=== PATIENT | female | born 2000 | race Caucasian/White ===

== ENCOUNTER 2022-04-25 05:32 | Emergency (ER) | payer BC ==
--- OUTSIDE RECORDS SUMMARY | 2022-04-25 05:37 | XMS REPORT | Continuity of Care Document ---
:[address] [facility] t Address [address] [place] [address] Care Team Providers Name Role Phone PCP, PATIENT DOES NOT HAVE A Primary Care Physician UnavailJOSHUA Triplett Attending Clinician Unavailable Joshua Moore Attending Clinician JUDITH JAMES Attending Clinician Unavailable Provider, [facility] Attending Clinician Unavailable Judith Ye Attending Clinician CARLITOS ROBLERO Attending Clinician Unavailable Alvarado Barrera Attending Clinician Carlitos Lambert Attending Clinician Only, Pcp Test Attending Clinician Unavailable Radha Reilly MD Attending Clinician RADHA REILLY Attending Clinician Unavailable Pob[facility], [facility] Attending Clinician Unavailable Trina Arvizu MD Attending Clinician TRINA ARVIZU Attending Clinician Unavailable JOSHUA SUBRAMANIAN Admitting Clinician Unavailable Payers Payer Name Policy Type Policy Number Effective Date Expiration Date S ource ENTRUST [id number] 2020 00:00:00 [employer] [id number] 2019 PREFERRED GENERIC 00:00:00 Problems Condition Condition Condition Status Onset Resolution Last Treating Co mments Source Name Details Category Date Date Treatment Clinician Date No known No known Disease Unive rs active active ity of problems problems [facility] Allergies, Adverse Reactions, Alerts Allergy Allergy Status Severity Reaction(s) Onset Inactive Treating Comm ents Source Name Type Date Date Clinician Penicill Propensi Active Rash Univer s ins ty to 6-10 ity of adverse 00:00: [place] reaction 00 Medical s Branch PENICILL Drug Active Rash 0 Univers INS Class 6-10 ity of 00:00: [place] 00 Medical Branch NO KNOWN Drug Active Univers ALLERGIE Class ity of S [facility] Social History Social Habit Start Date Stop Date Quantity Comments Source Sex Assigned At [facility] Medical Branch Exposure to Not sure [facility] SARS-CoV-2 (event) Medica l Branch Tobacco use and 2020-05-20 2020-05-20 Never used [facility] exposure 00:00:00 00:00:00 Medical Branch Smoking Status Start Date Stop Date Source Never smoker [facility] Medications Ordered Filled Start Stop Current Ordering Indication Dosage Frequency Signature Comments Components Source Medication Medication Date Date Medication? Clinician (SIG) Name Name albuterol 2019-06 Yes [id number] 2{puff} Inhale 2 Univers 90 2-19 Puffs ity of mcg/actuati 00:00: every 4 [place] as on inhaler 00 (four) Medical hours as Branch needed for Wheezing or Shortness of Breath. benzonatate 2019-06 Yes [id number] 100mg Take 1 Univers 100 mg 2-19 capsule by ity of capsule 00:00: mouth 3 [place] 00 (three) Medical times Branch daily as needed for Cough. No known No [facility] No known No [facility] No known No [facility] No known No [facility] No known No [facility] No known No Univers medications [facility] [place] Vital Signs Vital Name Observation Time Observation Value Comments Source Systolic blood 2020-05-21 03:19:42 133 mm[Hg] Univer sity of [facility] Diastolic blood 2020-05-21 03:19:42 78 mm[Hg] Unive rsity of [facility] Heart rate 2020-05-21 03:19:42 93 /min Universi ty of [facility] Respiratory rate 2020-05-21 03:19:42 20 /min Univ ersity [facility] Oxygen saturation in 2020-05-21 03:19:42 99 /min [facility] Arterial blood by [facility] Pulse oximetry Branch Body temperature 2020-05-21 01:18:00 37.78 Brianne Univ ersity [facility] [place] [facility] Body weight 2020-05-21 01:18:00 97.523 kg [facility] [place] [facility] BMI 2020-05-21 01:18:00 33.67 kg/m2 [facility] [place] [facility] Systolic blood 2020-05-21 00:05:00 135 mm[Hg] Univer sity [facility] [place] [facility] Diastolic blood 2020-05-21 00:05:00 76 mm[Hg] Unive rsity [facility] [place] [facility] Heart rate 2020-05-21 00:05:00 75 /min [facility] [place] [facility] Body temperature 2020-05-21 00:05:00 37.22 Brianne [facility] [place] [facility] Respiratory rate 2020-05-21 00:05:00 17 /min Univ [facility] [place] [facility] Body height 2020-05-21 00:05:00 170.2 cm [facility] [place] [facility] Body weight 2020-05-21 00:05:00 95.255 kg [facility] [place] [facility] BMI 2020-05-21 00:05:00 32.89 kg/m2 [facility] [place] [facility] Oxygen saturation in 2020-05-21 00:05:00 98 /min University of Arterial blood by [facility] Pulse oximetry Branch Systolic blood 2020-05-18 19:43:00 134 mm[Hg] Univer sity [facility] [place] [facility] Diastolic blood 2020-05-18 19:43:00 79 mm[Hg] Unive rsity [facility] [place] [facility] Heart rate 2020-05-18 19:43:00 83 /min [facility] [place] [facility] Body temperature 2020-05-18 19:43:00 37.06 Brianne [facility] [place] [facility] Respiratory rate 2020-05-18 19:43:00 18 /min Univ [facility] [place] [facility] Body height 2020-05-18 19:43:00 170.2 cm [facility] [place] [facility] Body weight 2020-05-18 19:43:00 95.255 kg [facility] [place] [facility] BMI 2020-05-18 19:43:00 32.89 kg/m2 [facility] [place] [facility] Oxygen saturation in 2020-05-18 19:43:00 98 /min University of Arterial blood by [facility] Pulse oximetry Branch Diastolic blood 2019-11-10 19:20:00 78 mm[Hg] Unive rsity of pressure [facility] Heart rate 2019-11-10 19:20:00 101 /min [facility] Body temperature 2019-11-10 19:20:00 36.39 Brianne [facility] Respiratory rate 2019-11-10 19:20:00 18 /min [facility] [place] Body height 2019-11-10 19:20:00 170.2 cm [facility] Body weight 2019-11-10 19:20:00 95.255 kg [facility] BMI 2019-11-10 19:20:00 32.89 kg/m2 [facility] Oxygen saturation in 2019-11-10 19:20:00 99 /min [facility] Arterial blood by [facility] Pulse oximetry [place] Systolic blood 2019-11-10 19:20:00 116 mm[Hg] Univer sity of pressure [facility] Procedures Procedure Date / Time Performed Performing Clinician Joan e POCT TEST 2020-05-21 02:13:00 Joshua Subramanian [facility] URINALYSIS 2020-05-21 02:12:00 [facility] VW 2020-05-21 02:05:30 Tez [facility] NOTICE OF PRIVACY 2020-05-21 01:03:29 Doctor Unassigned, No Univ [facility] PRACTICES Name Medical [place] CONSENT/REFUSAL FOR 2020-05-21 01:03:15 [facility], [facility] Name Medical Branch TREATMENT POCT FLU A AND B 2020-05-21 00:15:00 Judith James [facility] (MOLECULAR) [facility] Branch POCT GRP A STREP 2020-05-18 19:47:00 Carlitos Roblero [facility] (MOLECULAR) [facility] Encounters Start End Encounter Admission Attending Care Care Encounter Source Date/Time Date/Time Type Type Clinicians Facility Department ID 2020-05-20 2020-05-20 Emergency X MICHAEL SUBRAMANIAN ERT [id number] Univers 19:20:00 21:24:00 JOSHUA [facility] [place] 2020-05-20 2020-05-20 Emergency MICHAEL Subramanian [id number] Univers 19:20:00 21:24:00 Joshua Ramirez [id number] i ty mark [id number] [phone] [address] 2020-05-20 2020-05-20 Outpatient R JACOB [facility] [id number] Univers 18:20:00 18:20:00 JUDITH [facility] [place] 2020-05-20 2020-05-20 Urgent Provider, [facility] [id number] Univers 17:47:41 18:07:41 Eulogio Jacob [facility] [id number] ity of [place] 4.2.7.2.686 [place] as Professio [phone] [address] Office [facility] 2020-05-18 2020-05-18 Outpatient R MANJULAERIC [facility] [id number] Univers 14:00:00 14:00:00 [facility] 2020-05-18 2020-05-18 Urgent Alvarado Ohara [facility] [id number] Univers 13:38:12 13:58:12 Eulogio Annika [facility] [id number] ity of [place] 4.2.7.2.686 [place] Professio [id number] [address] Office Building [facility] 2019-12-06 2019-12-06 Laboratory Only, Pcp Test [facility] 1.2.840. 114 [id number] Univers 15:39:50 15:54:50 Only Radha Reilly PRIMARY [id number] it[place] [id number] [address] 2019-12-06 2019-12-06 Outpatient R EMANUEL [facility] [id number] Univers 15:30:00 15:30:00 RADHA tripp [facility] 2019-11-27 2019-11-27 Laboratory Only, Pcp Test [facility] 1.2.840. 114 [id number] Univers 16:20:59 16:35:59 Only Radha Reilly PRIMARY [id number] [place] [id number] [address] 2019-11-27 2019-11-27 Outpatient R EMANUEL [facility] [id number] Univers 16:30:00 16:30:00 [facility] 2019-11-12 2019-11-12 Telephone Pob1, Acute [facility] 1.2.840.114 [id number] Univers 00:00:00 00:00:00 Health System [id number] ity of [place] 4.2.7.2.686 [place] as Professio [id number] Fl [address]nm n[address] Office Building [facility] 2019-11-10 2019-11-10 Urgent Pob1, Acute Care Clinic [facility] 1. [id number] Univers 14:06:54 14:26:54 Eulogio ArreguinanTrina [facility] [id number] ity of [place] 4.2.7.2.686 [place] Professio [id number] [facility] [address] [place] Office [facility] 2019-11-10 2019-11-10 Outpatient R BELEN [facility] [id number] Univers 13:40:00 13:40:00 [facility] Results Test Description Test Time Test Comments Results Result Comments Source Urinalysis 2020-05-21 02:38:00 Test Item Value Reference Range Interpretation Comme nts APPEARANCE (test code = Clear Clear 7086713126) COLOR (test code = 0886906820) Yellow Yellow PH (test code = 9678578191) 4.8-8.0 SP GRAVITY (test code = 1.003-1.030 8225672029) GLU U QUAL (test code = Negative Negative 6722028319) BLOOD (test code = 4399144610) Moderate Negative A KETONES (test code = 0651177357) Negative Negative PROTEIN (test code = 2887-8) Negative Negative UROBILIN (test code = 1.0 mg/dL See_Comment [Auto mated message] The 1271524000) system which ge nerated this result transmit seb reference range: 0-1.0 mg /dL. The reference range was not used to interpret th is result as normal/abnormal . BILIRUBIN (test code = Negative Negative 9592913777) NITRITE (test code = 0980108021) Negative Negative LEUK ERIC (test code = Negative Negative 2127609488) RBC/HPF (test code = 3920691268) See_Comment H [Automated message] The system which ge nerated this result transmit seb reference range: 0 - 3 HP F. The reference range was not used to interpret th is result as normal/abnormal . WBC/HPF (test code = 9778045243) See_Comment [Automated message] The system which ge nerated this result transmit seb reference range: 0 - 5 HP F. The reference range was not used to interpret th is result as normal/abnormal . BACTERIA (test code = Few Negative A 8951529189) SQ EPITH (test code = HPF 7986588475) Lab Interpretation (test code = Abnormal 82244-2) [facility] 1 [id number] 02:23:37Impression: No acute cardiopulmonary abnormality. Preliminary Report Dictated by Resident: Melchor Browne MD., have reviewed this study and agree with the abovereport.Exam: XR CHEST1 VW History: cough Comparison: None available Findings: The lungs are clear. No focal consolidationis present. No pleural effusionor pneumothorax is identified. The heart is normal in size. No acute o sseous abnormality. [facility], Radiant Results Inft User - 05/20/2020 8:24 PM CSTExam: XR CHEST 1 VWHistory: cough Comparison: None availableFindings:The lungs are clear. No focal consolidation is present. No pleural effusionor pneumothorax is identified. The heart is normal in size. No acute osseous abnorm ality.IMPRESSIONImpression:No acute cardiopulmonary abnormality.Preliminary Report Dictated by Resident: Melchor Shetty MD., have reviewed this study and agree with the abovereport.[facility] [id number] 02:13:00 Test Item Value Reference Range Interpretation Comments POCT PREG (test code = 1605) Negative On board controls acceptable with Presents C Line (test code = 3574) POCT PREG LOT # (test code = 3575) [id number] POCT PREG TEST DATE (test 08/30/2021 code = 3576) Lab Interpretation (test code = Normal 55255-5) [facility] FLU A AND B (MOLECULAR)2020-05-21 00:29:00 Test Item Value Reference Range Interpretation Comments POCT INFLUENZA A (test code = neg Negative - Negative 3840) POCT INFLUENZA B (test code = neg Negative - Negative 3841) Lab Interpretation (test code = Normal 22470-3) [facility] GRP A STREP (MOLECULAR)2020-05-18 19:59:00 Test Item Value Reference Range Interpretation Comments POCT GP A STREP (test negative Negative - code = 68998-7) Negative YONY (test code = YONY) accurate development and interpretation of all internal controls Lab Interpretation Normal (test code = 56273-9) [facility] [place]
[2022-04-25] MEDS ORDERED: ONDANSETRON 4 MG/2 ML VIAL ONE (06:03)
[2022-04-25] MEDS ORDERED: NA CHLORIDE 0.9% 1,000 ML ONE (06:03)
[2022-04-25 06:16] LABS: Urine Blood Negative (Negative); Urine Glucose Negative (Negative); Urine Protein Negative (Negative); Urine Specific Gravity >=1.030 (1.005-1.030); Urine pH 5.5 (5.0-7.0)
[2022-04-25 06:32] LABS: Absolute Lymphocytes (CBC) 2.9 K/uL (0.7-4.9); Hematocrit 41.3 % (36.0-45.0); Lymphocytes % 32.7 % (15.3-44.8); MPV 6.9 fL (7.6-11.3)
[2022-04-25 06:46] LABS: Bilirubin Total 0.8 mg/dL (0.2-1.0); Potassium 3.9 mmol/L (3.5-5.1); Protein, Total 8.3 g/dL (6.4-8.2)
[2022-04-25 06:48] LABS: Urine Bacteria <20 /HPF (<20); Urine Mucus Slight /HPF (None Seen); Urine RBC <5 /HPF (None Seen)
[2022-04-25 07:31] LABS: SARS-COV-2 RT PCR NEGATIVE (NEGATIVE)
--- NOTE | 2022-04-25 07:39 | RAD REPORT ---
EXAM DESCRIPTION: CT - Abdomen Pelvis W Contrast - 04/25/2022 7:16 am CLINICAL HISTORY: Abdominal pain COMPARISON: none. TECHNIQUE: Computed axial tomography of the abdomen pelvis was obtained. 100 cc Isovue-300 was admin istered intravenously. Oral contrast was not requested which limits evaluation of bowel and appendix All CT scans are performed using dose optimization technique as appropriate and may include automated exposure control or mA/KV adjustment according to patient size. FINDINGS: The liver, spleen, pancreas, adrenal and kidneys appear unremarkable. There is no evidence of diverticulitis. Normal appendix No adnexal mass Small umbilical hernia. Several small right lower quadrant mesenteric lymph nodes IMPRESSION: Several small right lower quadrant mesenteric lymph nodes likely reactive in nature
--- NOTE | 2022-04-25 07:58 | EDPHYS ---
Physician Documentation [facility] Name: Linda Santiago Age: 21 yrs Sex: Female : 2000 Arrival Date: 04/25/2022 Time: 05:41 Bed 6 Private MD: ED Physician Timoteo Chowdhury HPI: 04/25 05:58 This 21 yrs old Female presents to ER via Ambulatory with complaints of Abdominal Pain, rn Nausea/Vomiting/Diarrhea. 05:58 The patient presents to the emergency department with nausea, vomiting, diarrhea, rn abdominal pain. Onset: The symptoms/episode began/occurred yesterday. Possible causes: unknown. The symptoms are aggravated by nothing. The symptoms are alleviated by nothing. Associated signs and symptoms: Pertinent positives: abdominal pain, diarrhea, nausea, vomiting, Pertinent negatives: fever, GI bleeding. Severity of symptoms: At their worst the symptoms were moderate in the emergency department the symptoms are unchanged. The patient has not experienced similar symptoms in the past. The patient has not recently seen a physician. Historical: - Allergies: 05:51 PENICILLINS; aa9 05:51 Morphine; aa9 - Home Meds: 05:51 None [Active]; aa9 - PMHx: 05:51 None; aa9 - PSHx: 05:51 None; aa9 - Immunization history:: Client reports having NOT received the Covid vaccine. - Social history:: Smoking status: Patient denies any tobacco usage or history of. - Family history:: not pertinent. - Hospitalizations: : No recent hospitalization is reported. ROS: 05:58 Constitutional: Negative for fever, chills, and weight loss, Eyes: Negative for injury, rn pain, redness, and discharge, Neck: Negative for injury, pain, and swelling, Cardiovascular: Negative for chest pain, palpitations, and edema, Respiratory: Negative for shortness of breath, cough, wheezing, and pleuritic chest pain, Abdomen/GI: + abd pain/nausea/vomiting/diarrhea Back: Negative for injury and pain, : Negative for injury, bleeding, discharge, and swelling, MS/Extremity: Negative for injury and deformity, Skin: Negative for injury, rash, and discoloration, Neuro: Negative for headache, numbness, tingling, and seizure. Exam: 05:58 Constitutional: This is a well developed, well nourished patient who is awake, alert, rn and in no acute distress. Head/Face: Normocephalic, atraumatic. ENT: dry MM Cardiovascular: Regular rate and rhythm. No pulse deficits. Respiratory: No increased work of breathing, no retractions or nasal flaring. Abdomen/GI: soft, + tender in all 4 quadrants, neg conn, no peritoneal signs, no distension or masses Skin: Warm, dry MS/ Extremity: Pulses equal, no cyanosis. Neuro: Awake and alert, GCS 15 Vital Signs: 05:49 Weight 108.86 kg (R); Height 5 ft. 7 in. (170.18 cm) (R); aa9 05:52 BP 128 / 99; Pulse 87; Resp 19 S; Pulse Ox 100% on R/A; aa9 05:57 Temp 98.2(O); aa9 06:27 BP 123 / 68; Pulse 82; Resp 18 S; Pulse Ox 99% on R/A; aa9 07:55 BP 122 / 86; Pulse 77; Resp 16; Pulse Ox 100% ; jl7 05:49 Body Mass Index 37.59 (108.86 kg, 170.18 cm) aa9 MDM: 05:42 Patient medically screened. rn 07:00 Transition of care: Care assumed from Uday Slaughter MD. ms3 08:05 Data reviewed: vital signs, nurses notes, lab test result(s), radiologic studies, and ms3 as a result, I will discharge patient. Counseling: I had a detailed discussion with the patient and/or guardian regarding: the historical points, exam findings, and any diagnostic results supporting the discharge/admit diagnosis, lab results, radiology results, the need for outpatient follow up, to return to the emergency department if symptoms worsen or persist or if there are any questions or concerns that arise at home. Special discussion: I discussed with the patient/guardian in detail that at this point there is no indication for admission to the hospital. It is understood, however, that if the symptoms persist or worsen the patient needs to return immediately for re-evaluation. ED course: Discussed labs, CT scan with patient. Patient to follow-up with Dr. Salinas in 2 to 3 days. Patient returns and agrees with plan. Patient given work note to return to work on April 28. Patient understands and agrees with plan. All questions were answered. Return precautions discussed include worsening symptoms, or any other concerns. On reevaluation patient is improved, alert and oriented x4, in no apparent distress, nontoxic appearing.. 04/25 05:58 Order name: CBC with Diff; Complete Time: 06:43 rn 04/25 05:58 Order name: CMP; Complete Time: 06:51 rn 04/25 05:58 Order name: Lipase; Complete Time: 06:51 rn 04/25 05:58 Order name: Urine Microscopic Only; Complete Time: 06:51 rn 04/25 05:58 Order name: COVID-19/FLU A+B; Complete Time: 07:43 rn 04/25 06:16 Order name: Urine Dipstick-Ancillary; Complete Time: 06:43 EDMS 04/25 05:58 Order name: CT Abd/Pelvis - IV Contrast Only; Complete Time: 07:43 rn 04/25 05:58 Order name: IV Saline Lock; Complete Time: 06:19 rn 04/25 05:58 Order name: Labs collected and sent; Complete Time: 06:19 rn 04/25 05:58 Order name: Urine Dipstick-Ancillary (obtain specimen); Complete Time: 06:19 rn 04/25 05:58 Order name: Urine Test (obtain specimen); Complete Time: 06:19 rn 04/25 06:18 Order name: Urine --Ancillary (enter results) wm Administered Medications: 06:19 Drug: NS 0.9% 1000 ml Route: IV; Rate: 1 bolus; Site: left upper arm; aa9 08:08 Follow up: Response: No adverse reaction; IV Status: Completed infusion; IV Intake: jl7 500ml 06:19 Drug: Zofran (Ondansetron) 4 mg Route: IVP; Site: left upper arm; aa9 08:08 Follow up: Response: No adverse reaction; Nausea is decreased jl7 Disposition Summary: 04/25/22 07:57 Discharge Ordered Location: Home ms3 Condition: Stable ms3 Diagnosis - Vomiting ms3 - Diarrhea, unspecified ms3 - Abdominal pain, unspecified ms3 Followup: ms3 - With: Seven Salinas, DO - When: 2 - 3 days - Reason: Recheck today's complaints Discharge Instructions: - Discharge Summary Sheet ms3 - Abdominal Pain, Adult ms3 - Diarrhea, Adult ms3 - Vomiting, Adult ms3 Forms: - Work release form ms3 - Medication Reconciliation Form ms3 - Thank You Letter ms3 - Antibiotic Education ms3 - Prescription Opioid Use ms3 Prescriptions: - ondansetron 4 mg Oral tablet,disintegrating - take 1 tablet by ORAL route every 8 hours for 3 days; 15 tablet; Refills: 0, ms3 Product Selection Permitted Signatures: Dispatcher [employer] EDME Uday Slaughter MD MD rn Timoteo Chowdhury DO DO ms3 Richelle Valdez RN RN aa9 Fransisco Mukherjee RN jl7
--- NOTE | 2022-04-25 07:58 | ER ---
Nurse's Notes [facility] Name: Linda Santiago Age: 21 yrs Sex: Female : 2000 Arrival Date: 04/25/2022 Time: 05:41 Bed 6 Private MD: Diagnosis: Vomiting;Diarrhea, unspecified;Abdominal pain, unspecified Presentation: 04/25 05:49 Chief complaint: Patient states: Severe abdominal pain, I have been vomiting and I have aa9 diarrhea, It just came on suddenly. Coronavirus screen: Vaccine status: Patient reports being unvaccinated. Ebola Screen: No symptoms or risks identified at this time. Initial Sepsis Screen: Does the patient meet any 2 criteria? No. Patient's initial sepsis screen is negative. Does the patient have a suspected source of infection? No. Patient's initial sepsis screen is negative. Risk Assessment: Do you want to hurt yourself or someone else? Patient reports no desire to harm self or others. Onset of symptoms was April 25, 2022. 05:49 Method Of Arrival: Ambulatory aa9 05:49 Acuity: LINO 3 aa9 Triage Assessment: 05:51 General: Appears uncomfortable, obese, Behavior is cooperative, appropriate for age, aa9 anxious. Pain: Complains of pain in epigastric area and suprapubic area Pain currently is 6 out of 10 on a pain scale. Noted to be grimacing, moaning, Also complains of nausea. EENT: No signs and/or symptoms were reported regarding the EENT system. Neuro: Level of Consciousness is awake, alert, obeys commands, Oriented to person, place, time, situation. Cardiovascular: Patient's skin is warm and dry. Respiratory: Airway is patent Respiratory effort is even, unlabored. GI: Abdomen is obese, Reports diarrhea, nausea, vomiting. : No signs and/or symptoms were reported regarding the genitourinary system. Derm: Skin is intact, is healthy with good turgor. Musculoskeletal: No signs and/or symptoms reported regarding the musculoskeletal system. Historical: - Allergies: 05:51 PENICILLINS; aa9 05:51 Morphine; aa9 - Home Meds: 05:51 None [Active]; aa9 - PMHx: 05:51 None; aa9 - PSHx: 05:51 None; aa9 - Immunization history:: Client reports having NOT received the Covid vaccine. - Social history:: Smoking status: Patient denies any tobacco usage or history of. - Family history:: not pertinent. - Hospitalizations: : No recent hospitalization is reported. Screenin:53 Abuse screen: Denies threats or abuse. Denies injuries from another. Nutritional aa9 screening: Has had N/V for 3 or more days. Tuberculosis screening: No symptoms or risk factors identified. Fall Risk None identified. Assessment: 06:20 Reassessment: Patient appears in no apparent distress at this time. Patient is aa9 alert/active/playful, equal unlabored respirations, skin warm/dry/pink. General: Appears comfortable, Behavior is calm, cooperative, appropriate for age. Respiratory: Airway is patent Respiratory effort is even, unlabored. 06:27 GI: Abd is soft X 4 quads Abdomen is tender to palpation in epigastric area and aa9 suprapubic area. 07:55 Reassessment: Dr. Chowdhury at bedside discussing results and POC. jl7 Vital Signs: 05:49 Weight 108.86 kg (R); Height 5 ft. 7 in. (170.18 cm) (R); aa9 05:52 BP 128 / 99; Pulse 87; Resp 19 S; Pulse Ox 100% on R/A; aa9 05:57 Temp 98.2(O); aa9 06:27 BP 123 / 68; Pulse 82; Resp 18 S; Pulse Ox 99% on R/A; aa9 07:55 BP 122 / 86; Pulse 77; Resp 16; Pulse Ox 100% ; jl7 05:49 Body Mass Index 37.59 (108.86 kg, 170.18 cm) aa9 ED Course: 05:41 Patient arrived in ED. ja2 05:41 Uday Slaughter MD is Attending Physician. rn 05:49 Richelle Valdez, JANET is Primary Nurse. aa9 05:51 Triage completed. aa9 05:52 Arm band placed on. aa9 05:53 Patient has correct armband on for positive identification. Bed in low position. Call aa9 light in reach. Side rails up X2. Pulse ox on. NIBP on. 06:15 Inserted saline lock: 20 gauge in left upper arm, using aseptic technique. Blood aa9 collected. 06:15 No provider procedures requiring assistance completed. aa9 06:19 COVID-19/FLU A+B Sent. aa9 06:19 CBC with Diff Sent. aa9 06:19 CMP Sent. aa9 06:19 Lipase Sent. aa9 06:19 Urine Microscopic Only Sent. aa9 06:20 Awaiting lab results, Awaiting CT Scan. aa9 06:20 Warm blanket given. aa9 07:18 CT Abd/Pelvis - IV Contrast Only In Process Unspecified. EDMS 07:37 Attending Physician role handed off by Uday Slaughter MD ms3 07:37 Timoteo Chowdhury DO is Attending Physician. ms3 07:55 IV discontinued, intact, bleeding controlled, No redness/swelling at site. Pressure jl7 dressing applied. 07:57 Seven Salinas DO is Referral Physician. ms3 Administered Medications: 06:19 Drug: NS 0.9% 1000 ml Route: IV; Rate: 1 bolus; Site: left upper arm; aa9 08:08 Follow up: Response: No adverse reaction; IV Status: Completed infusion; IV Intake: jl7 500ml 06:19 Drug: Zofran (Ondansetron) 4 mg Route: IVP; Site: left upper arm; aa9 08:08 Follow up: Response: No adverse reaction; Nausea is decreased jl7 Medication: 05:53 VIS not applicable for this client. aa9 Intake: 08:08 IV: 500ml; Total: 500ml. jl7 Outcome: 07:57 Discharge ordered by . ms3 08:09 Discharged to home ambulatory. jl7 08:09 Condition: stable 08:09 Discharge instructions given to patient, Instructed on discharge instructions, follow up and referral plans. medication usage, Demonstrated understanding of instructions, follow-up care, medications, Prescriptions given X 1. 08:09 Patient left the ED. jl7 Signatures: Dispatcher [employer] EDMS Uday Slaughter MD MD rn Leal, Jahala, RN RN jl7 Timoteo Chowdhury DO DO ms3 Lyubov Selby Aylin, RN RN aa9
[2022-04-25 08:14] VITALS: TEMP 98.2
[2022-04-25 08:17] VITALS: BP 122/86; O2SAT 100
[2022-04-25 08:34] LABS: Urine Specific Gravity/Preg >1.030 (1.005-1.030)
== END 2022-04-25 08:09 | disposition home or self-care (01) ==
LOC: ER 05:32
DX: R11.2 Nausea with vomiting, unspecified (principal); R10.9 Unspecified abdominal pain; R19.7 Diarrhea, unspecified; Z20.822 Contact with and (suspected) exposure to COVID-19; Z88.0 Allergy status to penicillin; Z88.5 Allergy status to narcotic agent
CPT/HCPCS: 96361; 85025; 36415; 81025; 83690; 80053; 0240U; 74177; 96374; 99284; Q9967; J7030; J2405; 81003; 81015